=== PATIENT | female | born 2000 | race Caucasian/White ===

== ENCOUNTER 2020-04-08 15:34 | Outpatient (REF) | payer OTHER, SELFPAY ==
[2020-04-08 16:28] LABS: Influenza A PCR NEGATIVE (Negative); Influenza B PCR NEGATIVE (Negative); Resp Syncy Virus RNA Qual PCR NEGATIVE (Negative); SARS COV2 PCR INHOUSE NEGATIVE (Negative)
== END 2020-04-08 15:35 | disposition home or self-care (01) ==
LOC: HO.LNP 15:34
PROVIDERS: Visit Provider Internal Medicine
DX: Z20.828 Contact with and (suspected) exposure to other viral communicable diseases (principal)
CPT/HCPCS: 0241U

== ENCOUNTER 2020-04-23 15:57 | Outpatient (REF) | payer OTHER, SELFPAY | END 2020-04-23 15:58 | disposition home or self-care (01) | LOC: HO.LNP 15:57 | PROVIDERS: Visit Provider Internal Medicine | DX: Z02.0 Encounter for examination for admission to educational institution (principal); Z20.822 Contact with and (suspected) exposure to COVID-19 | CPT/HCPCS: U0003 ==

== ENCOUNTER → 2020-09-02 13:54 | Outpatient (BNVA) | payer OTHER, SELFPAY | PROVIDERS: Visit Provider Advanced Practice Midwife ==

== ENCOUNTER 2020-12-01 10:56 | Outpatient (REF) | payer OTHER, SELFPAY ==
[2020-12-01 12:07] LABS: Influenza A PCR NEGATIVE (Negative); Influenza B PCR NEGATIVE (Negative); Resp Syncy Virus RNA Qual PCR NEGATIVE (Negative); SARS COV2 PCR INHOUSE NEGATIVE (Negative)
== END 2020-12-01 10:57 | disposition home or self-care (01) ==
LOC: HO.LNP 10:56
PROVIDERS: Visit Provider Internal Medicine
DX: Z20.822 Contact with and (suspected) exposure to COVID-19 (principal)
CPT/HCPCS: 0241U

== ENCOUNTER 2021-03-21 11:46 | Outpatient (REF) | payer OTHER, SELFPAY ==
[2021-03-21 13:11] LABS: Influenza A PCR NEGATIVE (Negative); Influenza B PCR NEGATIVE (Negative); Resp Syncy Virus RNA Qual PCR NEGATIVE (Negative); SARS COV2 PCR INHOUSE POSITIVE (Negative)
== END 2021-03-21 11:47 | disposition home or self-care (01) ==
LOC: HO.LNP 11:46
PROVIDERS: PCP Internal Medicine; Visit Provider Internal Medicine
DX: J02.9 Acute pharyngitis, unspecified (principal); Z20.822 Contact with and (suspected) exposure to COVID-19
CPT/HCPCS: 0241U

== ENCOUNTER 2021-09-06 10:24 | Outpatient (REF) | payer OTHER, SELFPAY ==
[2021-09-07 03:08] LABS: CT PCR DETECTED (Not Detect.); NG PCR NOT DETECTED (Not Detect.)
[2021-09-07 13:01] LABS: BV Int Neg Control Negative (Negative); BV Int Pos Control Positive (Positive)
== END 2021-09-06 10:25 | disposition home or self-care (01) ==
LOC: HO.LAB 10:24
PROVIDERS: Visit Provider Advanced Practice Midwife
DX: Z01.419 Encounter for gynecological examination (general) (routine) without abnormal findings (principal); Z11.3 Encounter for screening for infections with a predominantly sexual mode of transmission
CPT/HCPCS: 87480; 87491; 87510; 87591; 87660; 88142

== ENCOUNTER 2021-12-07 10:05 | Outpatient (REF) | payer OTHER, SELFPAY ==
[2021-12-07 15:52] LABS: CT PCR NOT DETECTED (Not Detect.); NG PCR NOT DETECTED (Not Detect.)
[2021-12-08 09:09] LABS: BV Int Neg Control Negative (Negative); BV Int Pos Control Positive (Positive)
== END 2021-12-07 10:06 | disposition home or self-care (01) ==
LOC: HO.LNP 10:05
PROVIDERS: Visit Provider Advanced Practice Midwife
DX: Z11.3 Encounter for screening for infections with a predominantly sexual mode of transmission (principal); Z20.2 Contact with and (suspected) exposure to infections with a predominantly sexual mode of transmission; Z86.19 Personal history of other infectious and parasitic diseases
CPT/HCPCS: 87480; 87491; 87510; 87591; 87660

== ENCOUNTER 2022-09-07 08:55 | Outpatient (REF) | payer OTHER, SELFPAY ==
[2022-09-07 15:29] LABS: CT PCR NOT DETECTED (Not Detect.); NG PCR NOT DETECTED (Not Detect.)
[2022-09-08 11:11] LABS: BV Int Neg Control Negative (Negative); BV Int Pos Control Positive (Positive)
== END 2022-09-07 08:56 | disposition home or self-care (01) ==
LOC: HO.LNP 08:55
PROVIDERS: Visit Provider Advanced Practice Midwife
DX: Z01.419 Encounter for gynecological examination (general) (routine) without abnormal findings (principal); A74.9 Chlamydial infection, unspecified; Z20.2 Contact with and (suspected) exposure to infections with a predominantly sexual mode of transmission
CPT/HCPCS: 0353U; 87480; 87510; 87660

== ENCOUNTER 2022-09-20 13:37 | Outpatient (REF) | payer OTHER, SELFPAY ==
[2022-09-20 15:32] LABS: Hematocrit 38.7 % (37.0-47.0); Hemoglobin 12.9 g/dl (12.0-16.0); Mean Corpuscular HGB Conc 33.3 g/dl (31.0-35.0); Mean Platelet Volume 10.6 fL (9.4-12.3); Platelet Count 210 X10*3/uL (160-400); Red Cell Distribution Width 12.4 % (11.0-16.0); White Blood Count 4.2 X10*3/uL (4.8-10.8)
[2022-09-22 05:09] LABS: Syphilis Screen Nonreactive (Nonreactive)
[2022-09-22 05:48] LABS: HBsAGNum1 0.59 S/CO (0.00-0.99); HIV AB/AG Nonreactive (Nonreactive); HIV Num 1 0.05 S/CO (0.00-0.99); Hepatitis B Surface Antigen Negative (Negative); ~HepC Num1 0.13 S/CO (0.00-0.79); ~Hepatitis C Antibody Nonreactive (Nonreactive)
== END 2022-09-20 13:38 | disposition home or self-care (01) ==
LOC: HO.LAB 13:37
PROVIDERS: Visit Provider Advanced Practice Midwife
DX: Z01.419 Encounter for gynecological examination (general) (routine) without abnormal findings (principal); A74.9 Chlamydial infection, unspecified; Z20.2 Contact with and (suspected) exposure to infections with a predominantly sexual mode of transmission
CPT/HCPCS: 36415; 85027; 86780; 86803; 87340; 87389

== ENCOUNTER 2024-03-31 11:14 | Outpatient (REF) | payer OTHER, SELFPAY | END 2024-03-31 11:15 | disposition home or self-care (01) | LOC: HO.LAB 11:14 | PROVIDERS: Visit Provider Advanced Practice Midwife | DX: Z13.89 Encounter for screening for other disorder (principal) ==

== ENCOUNTER 2024-03-31 11:14 | Outpatient (AMB) | payer OTHER, SELFPAY ==
--- OUTSIDE RECORDS SUMMARY | 2024-03-31 11:16 | XMS_ITS | Continuity of Care Document ---
Author Organization [facility] Address [address] [place] [id number]- Care Team Providers Care Corrective Therapist Name Role Phone Kelly Madrid MD Primary Care Physician [place] [facility] [place] 03/23/24 [facility] [address] [place] [id number]- Encounter Type: Triage Allergies, Adverse Reactions, Alerts No Known Allergies Medications Crutches crutches, # 1 pair, Maintenance, use as directed, 10/31/09 12:43:02 PM EDT Start Date: 10/31/09 Status: Ordered Quantity: 1.0 Unit: pair Repeat number: 1 Patient Care team information Care Team Personnel Name: Kelly Madrid MD Position: [facility] Physician - Pediatrics Member Role: PCP Address: [address] [facility] [place] [address]- Telecom: Insurance Providers Guarantor name: NA Health Plan Information #: 1 Payer: [facility] Member Number: NA Policy Number: NA Group Number: NA
--- NOTE | 2024-03-31 11:22 | A.OFFVIS_ITS ---
Vital Signs 03/31/24 11:23 Height 5 ft 7 in Weight 156 lb BMI 24.4 BP 100/60 Intake Visit Reasons: annual Geoscience Technician Required: No Geoscience Technician Services: Geoscience Technician Present Information Interpreted: clinical only Building Coordinator: Building Coordinator Present Allergies No Known Allergies Allergy (Verified 03/31/24 11:25) Medication List - Last Reconciled 03/31/24 by Philomena Stephenson CNM norethindrone ac-eth estradiol 1-20 mg-mcg () 1 tab PO DAILY Is last menstrual period known: Yes Last menstrual period: 03/17/24 HPI HPI annual: Details: Temp Recruiter annual exam she is home visiting her family from [facility] where she moved in the summer of 2022. She would like to get her Pap smear done as she may not have access to j2ee application developer care when it is due this coming year. She wants to talk about the control pills and all other methods of control so she knows what her options are should she want to change in the future she started control pills when she was 14 years old because she was sexually active her periods she says were not that bad before she started on the pills. She went to [facility] and believes she was fully vaccinated. She is not sexually active right now but wants testing for STIs along with her Pap smear. She would use condoms for STI protection as well she is not interested in getting blood work for STI she did have a GP visit in [facility] so she knows how to get around the healthcare system and if she needed j2ee application developer care she would get a referral. She would like a year's refill on her control pills to tide her over the year which is what she did last time. She is still a nonsmoker. She flies back to [place] on April 04. [facility] Surgical History Hx of wisdom tooth extraction Social History Alcohol intake: current Alcohol intake frequency: a few times a week Patient Tobacco Use Status: Never used Tobacco Substance Use Type: Marijuana Sexual orientation: Straight/Heterosexual Gender identity: Female Female Reproductive History Menstrual Age of Menarche: 10 Duration of menses: 6-7 days Date of last menstrual period: 03/17/24 control method: pills Total pregnancies: 0 Date of last pap smear: 09/06/21 (negative) Physical Exam Vital Signs: Last Vital Signs BP 100/60 03/31/24 11:23 BMI result Body Mass Index 24.4 Const General: healthy appearing, comfortable, no acute distress, well developed and alert Nutritional Appearance: average body habitus Orientation/consciousness: patient oriented x3 Limitations: no limitations HEENT Head: Yes normocephalic Neck Neck: Yes normal visual inspection Chest Chest palpation & inspection: normal inspection of the chest Breast/axilla inspection: normal inspection of the breasts and normal inspection of the axillae Breast/axilla palpation: normal palpation of the breasts and normal palpation of the axillae Resp Effort & Inspection: normal respiratory effort GI Inspection: Yes normal to inspection, No Abdominal wall edema and No distended Palpation (GI): Soft to palpation and nontender Other: External exam within normal limits vagina is pink and moist cervix nulliparous pink smooth healthy appearing normal scant clear mucus consistent with long-term OCP use. Uterus small midposition to anteverted mobile nontender adnexa nontender nonenlarged very good tone with Kegel. General: Yes bladder normal to palpation External Female Exam: normal external appearance and normal appearance of the urethra Speculum Exam - Vagina: normal appearance of the vagina, normal palpation and normal vaginal discharge Speculum Exam - Cervix: normal appearance of the cervix, normal palpation and nontender Bimanual exam- vagina & uterus: normal bimanual exam, normal palpation, uterine size normal, bladder normal to palpation, consistency normal, normal palpation, uterine mobility normal, uterine shape normal, No Cervical tenderness present, non-tender and no cervical motion tenderness Bimanual Exam- Adnexa, other: normal adnexae, no masses, normal and No adnexal tenderness Neuro General: patient oriented x3 Results Reviewed Results Reviewed: Name: Babak Thomas Age/Sex: 20/F Attending: Philomena Stephenson CNM : 2000 Submitted by: Philomena Stephenson CNM Copies to: MR #: [id number] Status: DEP REF Collected: 09/06/21 Location: .LAB Received: 09/07/21 Interpretation Satisfactory for evaluation. Negative for intraepithelial lesion or malignancy. Clinical Information LMP: 07/2021 Previous PAP test: Never Material Received ThinPrep-Cervical Electronically Signed By: NIKKI Romero ([facility]) 09/20/21 1120 The Pap Test is a screening procedure with the inherent possibility of both false negative and false positive results. Results should be interpreted in the context of historic and current clinical findings. Reliability of the Pap Test is enhanced by performing the test on a regular repetitive basis. Patient: Babak Thomas Age/Sex: 20/F MR#: [id number] Page 1 of 1 Assessment & Plan Assessment & Plan (1) Well woman exam with routine gynecological exam: Code(s): Z01.419 - Encounter for gynecological examination (general) (routine) without abnormal findings Category: Medical (2) Counseling for control, oral contraceptives: Code(s): Z30.09 - Encounter for other general counseling and advice on contraception Category: Medical (3) Cervical cancer screening: Comment: 09/06/21. Pap equals negative Code(s): Z12.4 - Encounter for screening for malignant neoplasm of cervix Category: Medical (4) Screen for sexually transmitted diseases: Code(s): Z11.3 - Encounter for screening for infections with a predominantly sexual mode of transmission Category: Medical (5) control counseling: Code(s): Z30.09 - Encounter for other general counseling and advice on contraception Category: Medical Plan -----Discussed in this visit the following: healthy balanced diet, regular and consistent exercise, getting recommended health screens, doing the best she can for her particular health concerns, kegel exercises, pap smear screening and followup recommendations, mammography screening and SBE, normal changes in cycles in her life stage--- .-I reviewed with the patient, all of the currently common used methods of control that are available. We reviewed how they work in the body, how they are taken, common side effects, uncommon side effects, precautions, and contraindications. -Discussed also factors that influence their effectiveness and use, and womens satisfaction with the method. -Discussed how each are used, and drawbacks of each method as well. -Methods covered included: condoms, control pills, control patches, control rings, Depo-Provera, Nexplanon, Mirena and Kyleena IUDs, and ParaGard IUDs. All of the above methods were covered in great detail including their side effect profiles and common experiences that women have and ways to mitigate against the negative experiences including attention to diet and exercise patient's with bleeding challenges that may occur her and efforts to time the initiation of the method to this start of the menstrual period. She decided she would like to stay on the pills for now and again requested the years refills so that she can take all of her supply with her to [place]. Reviewed the small risk of blood clot formation and especially since she will be traveling long flights 25 hours in total suggested getting up whenever she is able to on the airplane and frequently moving her feet/legs and buttocks in the seat. Pap smear was done at her request as she is still does not have a j2ee application developer provider in [place]. Discussed how she would obtain access to care there if she needed it. Medications: Refilled norethindrone ac-eth estradiol 1-20 mg-mcg () Please fill 13 packs of 28 of norethindrone acetate 1 mg/ethinyl estradiol 20 minute mcg tablets, for close to a 1 year supply of pills. 1 tab PO DAILY 364 tabs 0RF Coding Level of Care Code Est Pt Prev Care 18-39y([id number]) Diagnoses Well woman exam with routine gynecological exam Z01.419 Counseling for control, oral contraceptives Z30.09 Cervical cancer screening Z12.4 Screen for sexually transmitted diseases Z11.3 control counseling Z30.09
[2024-03-31 11:23] VITALS: BP 100/60; BMI 24.4
== END 2024-03-31 12:03 | disposition home or self-care (01) ==
PROVIDERS: Visit Provider Advanced Practice Midwife
DX: Z01.419 Encounter for gynecological examination (general) (routine) without abnormal findings (principal)
CPT/HCPCS: 99395; 99459

== ENCOUNTER 2024-03-31 12:03 | Outpatient (REF) | payer OTHER, SELFPAY ==
[2024-04-01 05:34] LABS: CT PCR NOT DETECTED (Not Detect.); NG PCR NOT DETECTED (Not Detect.)
[2024-04-01 08:29] LABS: Bacterial Vaginosis PCR NEGATIVE (Negative); Candida Group PCR NOT DETECTED (Not Detect); Candida glab krusei PCR NOT DETECTED (Not Detect); Trichomonas vaginalis PCR NOT DETECTED (Not Detect)
== END 2024-03-31 12:04 | disposition home or self-care (01) ==
LOC: HO.LNP 12:03
PROVIDERS: Visit Provider Advanced Practice Midwife
DX: Z01.419 Encounter for gynecological examination (general) (routine) without abnormal findings (principal); N89.8 Other specified noninflammatory disorders of vagina
CPT/HCPCS: 0352U; 87491; 87591; 88175